=== PATIENT | male | born 1970 | race Caucasian/White ===

== ENCOUNTER 2019-07-18 18:54 | Emergency (ER) | payer OTHER ==
[~2019-07-18] VITALS: Ht 170.2 cm; Wt 89.4 kg
[2019-07-18 19:10] VITALS: BP 128/90; Ht 170.2 cm; Wt 89.4 kg
== END 2019-07-18 19:44 | disposition home or self-care (01) ==
LOC: ED 18:54
DX: L02.11 Cutaneous abscess of neck (principal)
CPT/HCPCS: J2001

== ENCOUNTER 2019-09-11 18:50 | Emergency (ER) | payer OTHER ==
[~2019-09-11] VITALS: Ht 170.2 cm; Wt 95.3 kg
[2019-09-11 18:58] VITALS: BP 112/81; Ht 170.2 cm; Wt 95.3 kg
== END 2019-09-11 21:08 | disposition home or self-care (01) ==
LOC: ED 18:50
DX: J30.9 Allergic rhinitis, unspecified (principal)